=== PATIENT | female | born 1990 | race Caucasian/White ===

== ENCOUNTER 2022-12-10 17:14 | Emergency (ER) | payer MEDICAID, SELFPAY ==
[2022-12-10 17:17] VITALS: BP 133/69; PULSE 67; RESP 18; TEMP 36.9; O2SAT 98; BMI 23.5
--- NOTE | 2022-12-10 17:31 | XR_ITS ---
The [address] [address] Patient Name: VAN LOZANO MRN: [id number] date: 1990 Sex: F Assigned Patient Location: ER Current Patient Location: ER Accession/Order Number: [id number] Exam Date: 12/10/2022 17:40 Report Date: 12/10/2022 18:17 At the request of: MONIQUE LIN Procedure: XR acute abdomen series IMAGES REVIEWED: XR acute abdomen series COMPARISON: None available. CLINICAL INDICATION: Constipation FINDINGS/IMPRESSION: Nonspecific bowel gas pattern with apparent moderate-severe colonic stool burden and scattered air-fluid levels. Findings suggest severe constipation. No radiographic evidence of bowel obstruction at this time. No free air under the diaphragm. No acute cardiopulmonary abnormality. Probable small calcified granuloma or vessel on end in the right lung base. Electronically authenticated by: MOLLY NOBLES Date: 12/10/2022 18:17
--- NOTE | 2022-12-10 17:31 | ED.GENADUL1 ---
HPI - General Adult General Chief complaint: Abdominal Pain Stated complaint: CONSTIPATION X2 WEEKS Time Seen by Provider: 12/10/22 17:20 Source: patient Mode of arrival: walk-in Limitations: no limitations History of Present Illness HPI narrative: patient is a 32-year-old female who presents to the emergency department for the evaluation of constipation. She states she has not had a bowel movement in the last two weeks. She has had no significant abdominal pain, fevers or vomiting. She is not concerned for . She was on Suboxone, she took herself off two days ago because she believes that the Suboxone was causing her constipation. She has taken GoLYTELY and milk of magnesia as well as two enemas without improvement. No urinary symptoms. Related Data Previous Rx's Medication Instructions Recorded glycerin (adult) 1 supp DE BID PRN constipation #12 12/10/22 ea lactulose 10 gram/15 mL oral 10 g (15 mL) PO DAILY PRN 12/10/22 solution constipation #45 mL magnesium citrate (Citrate of 296 ml PO ONCE #296 mL 12/10/22 Magnesia oral) ondansetron 4 mg disintegrating 4 mg PO Q6H PRN nausea and 12/10/22 tablet vomiting #12 tabs Allergies Allergy/AdvReac Type Severity Reaction Status Date / Time No Known Drug Allergies Allergy Verified 12/10/22 17:17 Review of Systems ROS Constitutional Denies: fever or chills Cardiovascular Denies: chest pain Respiratory Denies: shortness of breath Gastrointestinal Denies: abdominal pain, nausea, vomiting or diarrhea Genitourinary Denies: painful urination Musculoskeletal Denies: back pain Integumentary/Breast Denies: rash Neurological Denies: headache Hematologic/Lymphatic Denies: easy bruising PFSH PFSH Social History Smoking status: Current every day smoker Exam Narrative Exam Narrative: Gen.: Awake, alert, in no distress Head: Normocephalic, atraumatic ENT: Moist mucous membranes Respiratory: No respiratory distress Gastrointestinal: Abdomen is soft, nondistended and nontender to palpation Extremities: Moves extremities equally Psych: Normal mood and affect Neuro: No focal neuro deficit Skin: Warm, dry, intact Constitutional Vital Signs, click to edit/add: Last Vital Signs Temp 98.4 F 12/10/22 17:17 Pulse 84 12/10/22 18:40 Resp 18 12/10/22 18:40 BP 105/82 12/10/22 18:40 Pulse Ox 99 12/10/22 18:40 O2 Del Method Room Air 12/10/22 18:40 Course Vital Signs Vital signs: Vital Signs Temperature 98.4 F 12/10/22 17:17 Pulse Rate 67 12/10/22 17:17 Respiratory Rate 18 12/10/22 17:17 Blood Pressure 133/69 12/10/22 17:17 Pulse Oximetry 98 12/10/22 17:17 Oxygen Delivery Method Room Air 12/10/22 17:17 Temperature 98.4 F 12/10/22 17:17 Pulse Rate 84 12/10/22 18:40 Respiratory Rate 18 12/10/22 18:40 Blood Pressure 105/82 12/10/22 18:40 Pulse Oximetry 99 12/10/22 18:40 Oxygen Delivery Method Room Air 12/10/22 18:40 Medical Decision Making MDM Narrative Medical decision making narrative: abdominal x-rays show no evidence of obstruction. Abdomen is soft and benign in the emergency department. Patient refused rectal exam. X-rays show significant constipation, patient started on lactulose, magnesium citrate and glycerin suppositories. Follow-up with PCP and return to the Emergency Room if symptoms change or worsen. Medical Records Medical records reviewed: Yes I reviewed the patient's medical records Lab Data Lab results reviewed: Yes I reviewed the patient's lab results Imaging Data Abdominal x-ray: Attestation: I have reviewed the pertinent imaging results. Radiologist's impression: Procedure: XR acute abdomen series IMAGES REVIEWED: XR acute abdomen series COMPARISON: None available. CLINICAL INDICATION: Constipation FINDINGS/IMPRESSION: Nonspecific bowel gas pattern with apparent moderate-severe colonic stool burden and scattered air-fluid levels. Findings suggest severe constipation. No radiographic evidence of bowel obstruction at this time. No free air under the diaphragm. No acute cardiopulmonary abnormality. Probable small calcified granuloma or vessel on end in the right lung base. Electronically authenticated by: MOLLY NOBLES Date: 12/10/2022 18:17 Discharge Plan Discharge Chief Complaint: Abdominal Pain Clinical Impression: Constipation Patient Disposition: Home, Self-Care Time of Disposition Decision: 18:24 Condition: Good Prescriptions / Home Meds: New magnesium citrate [Citrate of Magnesia] Solution 296 ml PO ONCE Qty: 296 0RF glycerin (adult) Suppository 1 supp DE BID PRN (Reason: constipation) Qty: 12 0RF lactulose 10 gram/15 mL solution 10 g PO DAILY PRN (Reason: constipation) Qty: 45 0RF ondansetron 4 mg tablet,disintegrating 4 mg PO Q6H PRN (Reason: nausea and vomiting) Qty: 12 0RF Instructions: Constipation (ED), High Fiber Diet (ED) Stand Alone Forms: Portal Instructions Referrals: Physician,Non-Staff, MD [Primary Care Provider] - 1 week Discharge Date/Time: 12/10/22 18:43
[2022-12-10 18:40] VITALS: BP 105/82; PULSE 84; RESP 18; O2SAT 99
== END 2022-12-10 18:43 | disposition home or self-care (01) ==
PROVIDERS: Emergency Provider Emergency Medicine Emergency Medical Services
DX: K59.00 Constipation, unspecified (principal); F17.210 Nicotine dependence, cigarettes, uncomplicated
CPT/HCPCS: 74022; 99283